=== PATIENT | female | born 1980 | race Caucasian/White ===

== ENCOUNTER 2019-01-05 09:28 | Day surgery (SDC) | payer MEDICAID ==
[2019-01-03 15:42] LABS: BASOPHILS 0.2 % (0-2); EOSINOPHILS 1.9 % (0-7); HEMATOCRIT 36.6 % (36.0-48.0); HEMOGLOBIN 12.3 g/dL (12-16); IMMATURE GRANULOCYTES 0.3 % (0-5); LYMPHOCYTES 22.2 % (15-50); MCHC 33.6 g/dL (31.0-37.0); MCV 89.3 fL (80.0-100.0); MEAN PLATELET VOLUME 9.2 fL (7.4-10.4); MONOCYTES 7.8 % (2-11); NEUTROPHILS 67.6 % (40-80); PLATELET COUNT 209 10x3/uL (130-400); RDW 13.5 % (11.5-14.5); WBC 8.7 10x3/uL (4.8-10.8)
[~2019-01-05] VITALS: Ht 167.6 cm; Wt 134.7 kg
[2019-01-05 09:05] VITALS: BP 91/67; Ht 167.6 cm; Wt 134.7 kg
[2019-01-05 09:11] LABS: HCG URINE NEGATIVE (NEGATIVE)
[~2019-01-05 09:28] MED LIST: AZURETTE 28 DA1 EACH PO; CYCLOBENZAPRINE10 MG; EFFEXOR75 MG; KLONOPIN1 MG PO; LEXAPRO10 MG PO; NORCO 10/325 TA1 TA1 PO; TOPROL XL50 MG PO; TUMERIC CURCUMIN
--- NOTE | 2019-01-05 13:22 | NUR ---
1150-REC'D FROM RR. DROWSY, EASILY AROUSED WITH VERBAL STIMULI. IV PATENT AT [facility]. DENIES COMPLAINTS.FULL LIQUID TRAY TO ROOM
--- NOTE | 2019-01-05 13:23 | NUR ---
1305-TOLERATED FULL LIQUID TRAY, ABLE TO AMBULATE TO RESTROOM AND URINATE WITHOUT DIFFICULTIES. IV DISCONTINUED FROM RIGHT HAND WITH CATH INTACT,DISPOSED INTO SHARPS CONTAINER. REVIEWED DISCHARGE INSTRUCTIONS. VERBALIZED UNDERSTANDING. ESCORTED OUT BY OPS STAFF VIA W/C WITH PAPERWORK INHAND. NO QUESTIONS OR CONCERNS.
--- NOTE | 2019-02-06 10:58 | OP ---
PATIENT NAME: DIEGO ORTIZ MEDICAL RECORD: [id number] :76 LOCATION:[facility] ADMISSION DATE: SURGEON: JENNIFER PINTO MD DATE OF OPERATION: 01/05/2019 PREOPERATIVE DIAGNOSIS: Menorrhagia. POSTOPERATIVE DIAGNOSIS: Menorrhagia. PROCEDURE: Hysteroscopy, D&C. SURGEON: Jennifer Pinto MD ESTIMATED BLOOD LOSS: 50 cc. INTRAVENOUS FLUIDS: Per anesthesia record. HYSTEROSCOPIC FLUID LOSS: Less than 100 cc of 0.9 normal saline. SPECIMENS: Endometrial curettings. FINDINGS: 1. Grossly normal-appearing external genitalia and cervix. 2. Endometrial cavity with thickened proliferative phase appearing endometrium noted. COMPLICATIONS: None apparent. PROCEDURE IN DETAIL: The patient was taken to the operating room where general anesthesia was achieved without difficulty. The patient was then prepped and draped in normal sterile fashion in the dorsal lithotomy position in the [facility]. Following prep and drape, the bladder was drained of approximately 200 cc of clear yellow urine. At this point, a Graves speculum was placed into the vagina and the anterior lip of the cervix was grasped with a single tooth tenaculum. The patient was sounded to approximately 10 cm. The patient was dilated then to approximately 4-5 mm and a hysteroscope was placed into the uterus. Findings are as mentioned. Hysteroscope was then removed and curettage was performed in all 4 quadrants with good return of tissue. Following the curettage, the tenaculum was removed. The patient tolerated the procedure well, was transported to postanesthesia recovery stable without incident. TRANSINT:[id number] Voice Confirmation ID: [id number] DOCUMENT ID: [id number] JENNIFER PINTO MD at 1058 CC: [id number] DICTATION DATE: 02/02/19 1259 SOLAR CONSULTANT: 02/02/19 1319 [facility] 01/05/19 [id number] [place] [id number]
== END 2019-01-05 13:05 | disposition home or self-care (01) ==
LOC: D.OPS 09:28 → D.PAN 11:00 → D.OPS 11:00
PROVIDERS: ATTEND Obstetrics & Gynecology
DX: N92.0 Excessive and frequent menstruation with regular cycle (principal); R93.89 Abnormal findings on diagnostic imaging of other specified body structures; Z01.812 Encounter for preprocedural laboratory examination